=== PATIENT | female | born 1950 | race Caucasian/White ===

== ENCOUNTER → 2016-08-02 | Day surgery (SDC) | payer BC, SELFPAY ==
[~2016-08-02] VITALS: Ht 162.6 cm; Wt 74.4 kg
[~2016-08-02] MED LIST: LEVOTHROID (S100 MCG PO; TYLENOL WITH C1 EACH PO
--- NOTE | ~2016-08-02 | HP ---
PATIENT'S NAME: BRIGIDA RITCHIE [facility] AGE: 65 Y [address] ROOM: [place] [address] LOCATION: [facility] [place] ADMIT DATE: 08/02/2016 History & Physical DISCHARGE DATE: FAMILY PHYSICIAN: Nicolette Friedman PA-C ATTENDING PHYSICIAN: Abdulaziz Benedict DATE OF SERVICE: 08/02/2016 HISTORY OF PRESENT ILLNESS: A 65-year-old white female who has a past history of having stage III adenocarcinoma of the rectum and had neoadjuvant chemotherapy along with an abdominoperineal resection. 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 She has done very nicely with the stent. She has had no problems. Her kidney function tests have remained stable. She has had no significant flank pain. She is seen now for stent change. PAST MEDICAL HISTORY: ILLNESSES: 1. Hypothyroidism. 2. Adenocarcinoma of the rectum. OPERATIONS: 1. . 2. Abdominoperineal low anterior resection. 3. Transverse colostomy. 4. As above. ALLERGIES: SULFA. PHYSICAL EXAMINATION: GENERAL: A well-developed, well-nourished, alert female. CHEST: Clear to auscultation. HEART: Normal sinus rhythm. ABDOMEN: Soft, with no palpable masses. PELVIC AND RECTAL: Deferred until cystoscopy. IMPRESSION: 1. Adenocarcinoma of the colon. 2. Left ureteral obstruction. 3. Left ureteral stent. PATIENT'S NAME: BRIGIDA RITCHIE [facility] AGE: 65 Y [address] ROOM: [place] [address] LOCATION: [facility] [place] ADMIT DATE: 08/02/2016 History & Physical DISCHARGE DATE: FAMILY PHYSICIAN: Nicolette Friedman PA-C ATTENDING PHYSICIAN: Abdulaziz Benedict PLAN: As above. MD LACY XAVIER/sybil /[id number] D: [id number] HISTORY & PHYSICAL
--- NOTE | ~2016-08-02 | OR ---
PATIENT'S NAME: BRIGIDA RITCHIE [facility] AGE: 65 Y [address] ROOM: [place] [address] LOCATION: [facility] [place] ADMIT DATE: 08/02/2016 OR/Procedure Report DISCHARGE DATE: FAMILY PHYSICIAN: Nicolette Friedman PA-C ATTENDING PHYSICIAN: Abdulaziz Benedict SURGEON: Abdulaziz Benedict MD COMPUTATIONAL GENETICIST: DATE OF PROCEDURE: 08/02/2016 PREOPERATIVE DIAGNOSES: 1. Left ureteral obstruction with hydronephrosis. 2. Left ureteral stent. POSTOPERATIVE DIAGNOSES: 1. Left ureteral obstruction with hydronephrosis. 2. Left ureteral stent. OPERATION: 1. Cystoscopy and removal of stent. 2. Cystoscopy and retrograde pyelograms. 3. Cystoscopy and insertion of stent, 7-Ukrainian 24 cm. DESCRIPTION OF PROCEDURE: After adequate anesthesia, she was prepped and draped. Cystoscope was inserted. The bladder was examined and it was normal. With the endoscopic forceps, the stent was removed. The yellow open-ended catheter was passed, contrast media was injected for the retrograde pyelograms. A guidewire was passed and over the guidewire, a 7-Ukrainian 24 cm stent was passed, coiled nicely in the kidney and the other end in the bladder. She was then accompanied to the recovery area. RETROGRADE PYELOGRAM REPORT: The initial film showed degenerative changes and osteoporosis of the lumbar spine. After the injection of contrast media, the distal ureter was displaced medially then the mid and upper ureter were normal. The kidney showed malrotation with pyelocaliectasis. IMPRESSION: Pyelocaliectasis with malrotated kidney, left. ABDULAZIZ BENEDICT MD PATIENT'S NAME: BRIGIDA RITCHIE [facility] AGE: 65 Y [address] ROOM: [place] [address] LOCATION: [facility] [place] ADMIT DATE: 08/02/2016 OR/Procedure Report DISCHARGE DATE: FAMILY PHYSICIAN: Nicolette Friedman PA-C ATTENDING PHYSICIAN: Abdulaziz Benedict EKL/modl /[id number] d: 08/02/16 0740 t: 08/03/16 0441, OPERATIVE SUMMARY
[2016-08-02 06:24] LABS: BASOPHIL % 1.1 %; EOSINOPHIL # 0.3 K/uL (0.0-0.5); EOSINOPHIL % 6.7 %; HEMATOCRIT 42.5 % (33.0-46.0); HEMOGLOBIN 13.9 g/dL (10.0-15.0); IMMATURE GRANULOCYTE % 0.3 %; LYMPHOCYTE # 1.1 K/uL (0.8-4.0); LYMPHOCYTE % 30.2 %; MCH 31.1 pg (27.0-34.0); MCHC 32.7 gm/dL (32.0-36.5); MCV 95.1 fl (83.0-98.0); MONOCYTE # 0.4 K/uL (0.0-1.0); MPV 8.8 fl (9.4-12.4); NEUTROPHIL # (ANC) 1.9 K/uL (1.8-7.8); NEUTROPHIL % 51.7 %; NRBC % 0 /100WBC (0-0.00); PLATELET COUNT 251 K/uL (150-450); RBC 4.47 M/uL (3.50-5.50); WBC 3.7 K/uL (4.0-11.0)
[2016-08-02 06:39] LABS: ALBUMIN 3.7 gm/dL (3.5-5.0); CALCIUM 8.5 mg/dL (8.5-10.5); CREATININE 1.1 mg/dL (0.5-1.1); TOTAL BILIRUBIN 0.6 mg/dL (0.0-1.5); TOTAL PROTEIN 7.5 g/dL (6.0-8.4)
== END | disposition disaster alternative care site (69) ==
LOC: GPOC 07-29 14:00 → GSDC 05:48
PROVIDERS: Urology
PROC: BT1FZZZ Fluoroscopy of Left Kidney, Ureter and Bladder (ICD-10-PCS; principal; 2016-08-02)
PROC: 0T778DZ Dilation of Left Ureter with Intraluminal Device, Via Natural or Artificial Opening Endoscopic (ICD-10-PCS; 2016-08-02)
PROC: 0TP98DZ Removal of Intraluminal Device from Ureter, Via Natural or Artificial Opening Endoscopic (ICD-10-PCS; 2016-08-02)
DX: N13.1 Hydronephrosis with ureteral stricture, not elsewhere classified (principal); Z46.6 Encounter for fitting and adjustment of urinary device; E03.9 Hypothyroidism, unspecified; Z93.3 Colostomy status; Z88.2 Allergy status to sulfonamides; Z98.890 Other specified postprocedural states; Z85.048 Personal history of other malignant neoplasm of rectum, rectosigmoid junction, and anus
CPT/HCPCS: C1769; J7120